=== PATIENT | female | born 1950 | race African-American/Black ===

== ENCOUNTER 2016-12-01 01:28 | Emergency (ER) | payer MEDICARE, OTHER ==
[~2016-12-01] VITALS: Ht 182.9 cm; Wt 75.0 kg
[~2016-12-01 01:28] MED LIST: AMLO5 PO; ASPI81 PO; ATEN25 PO; CLOP75 PO; DOXA1 PO; HYDR-2768 PO; PRAV10 PO
[2016-12-01 01:33] VITALS: BP 191/84; PULSE 98; RESP 16; TEMP 98.1; O2SAT 100
[2016-12-01] MEDS ORDERED: ATOR1TAB18 PO (03:10)
[2016-12-01] MEDS ORDERED: DOXA1TAB34 PO (03:10)
[2016-12-01] MEDS ORDERED: PANT40TA3 PO (03:10)
[2016-12-01] MEDS ORDERED: CLOP75TA PO (03:10)
[2016-12-01] MEDS ORDERED: AMLO5TAB2 PO (03:10)
[2016-12-01] MEDS ORDERED: SODIUM CHLOR 0.9% 1000 ML INJ 1,000 ML IV ONE (03:16)
[2016-12-01] MEDS ORDERED: SODIUM CHLORIDE 0.9% FLUSH 5 ML FLUSH IVF PRN (03:30)
[2016-12-01] MEDS ORDERED: PROCHLORPERAZINE INJ 10 MG/2 ML VIAL IVP ONE (03:30)
[2016-12-01] MEDS ORDERED: diphenhydrAMINE HCL 50 MG/ML VIAL IVP ONE (03:30)
[2016-12-01 03:42] LABS: AUTOMATED NEUTROPHIL # 3.1 TH/MM3 (1.8-7.7); BASOPHIL # 0.1 TH/MM3 (0-0.2); BASOPHIL % 0.9 % (0.0-2.0); EOSINOPHIL % 0.6 % (0.0-4.0); HEMATOCRIT 32.1 % (35.0-46.0); HEMO FLAGS DIFF FINAL; LYMPH % 35.6 % (9.0-44.0); LYMPHOCYTE # 2.2 TH/MM3 (1.0-4.8); MEAN CELL VOLUME 87.7 FL (80.0-100.0); MEAN CORPUSCULAR HEMOGLOBIN 30.2 PG (27.0-34.0); MEAN CORPUSCULAR HGB CONC 34.5 % (32.0-36.0); MONO % 13.8 % (0.0-8.0); NEUT % 49.1 % (16.0-70.0); PLATELET COUNT 401 TH/MM3 (150-450); RED BLOOD COUNT 3.66 MIL/MM3 (4.00-5.30); RED CELL DISTRIBUTION WIDTH 16.1 % (11.6-17.2); WHITE BLOOD COUNT 6.3 TH/MM3 (4.0-11.0)
[2016-12-01 03:55] VITALS: PULSE 75; RESP 18; O2SAT 100
--- NOTE | 2016-12-01 04:04 | RADRPT ---
EXAM DATE/TIME: 12/01/2016 03:41 [facility] COMPARISON: CT BRAIN W/O CONTRAST, May 14, 2013, 3:24. INDICATIONS : Headache. RADIATION DOSE: 56.35 CTDIvol (mGy) MEDICAL HISTORY : Myocardial infarction. Hypercholesterolemia. Hypertension.Cardiac stent SURGICAL HISTORY : Tubal ligation. ectopic ENCOUNTER: Initial ACUITY: 1 day PAIN SCALE: 9/10 LOCATION: cranial TECHNIQUE: Multiple contiguous axial images were obtained of the head. Using automated exposure control and adj ustment of the mA and/or kV according to patient size, radiation dose was kept as low as reasonably a chievable to obtain optimal diagnostic quality images. FINDINGS: There are tiny bilateral basal ganglia lacunar infarcts which appear stable and remote. Minimal basal ganglia calcification present. There is no evidence of intracranial hemorrhage or mass. There is not rupal to suggest acute infarction. Extracranial structures are benign and intact. CONCLUSION: No acute intracranial findings Logan Norwood MD on December 01, 2016 at 4:01 Board Certified Radiologist. This report was verified electronically.
[2016-12-01 04:10] LABS: ANION GAP 11 MEQ/L (5-15); BICARBONATE 23.1 MEQ/L (21.0-32.0); BLOOD UREA NITROGEN 9 MG/DL (7-18); CHLORIDE 94 MEQ/L (98-107); GLOMERULAR FILTRATION RATE 80 ML/MIN (>89); POTASSIUM 3.6 MEQ/L (3.5-5.1); SODIUM (NA) 128 MEQ/L (136-145)
--- NOTE | 2016-12-01 04:48 | PD ---
HPI Chief Complaint: Hypertension Time Seen by Provider: 03:16 Travel History International Travel<30 days: No Contact w/Intl Traveler<30days: No Traveled to known affect area: No History of Present Illness HPI Patient 66-year-old female presents emergency department for evaluation of headache and high blood pressure. Patient states she's been having headache for her proximally and day and a half. States headache is bifrontal. States she's had headaches like this before. Denies any thunderclap presentation denies any nuchal rigidity fevers visual changes or localized weakness. Patient took her blood pressure noted it was elevated. She's been taking her blood pressure medicine as prescribed. PFSH Past Medical History Hx Anticoagulant Therapy: Yes (PLAVIX) Arthritis: No Asthma: No Blood Disorders: No Anxiety: No Depression: No Heart Rhythm Problems: No Cancer: No Cardiac Catheterization: Yes Cardiovascular Problems: Yes (HTN, PR STENT) High Cholesterol: Yes Chemotherapy: No Chest Pain: No Congestive Heart Failure: No COPD: No Cerebrovascular Accident: No Diabetes: No Diminished Hearing: No Endocrine: No GERD: No Headaches: Yes Hiatal Hernia: No Hypertension: Yes Implanted Vascular Access Dvce: No Kidney Stones: No Immunizations Current: Yes Migraines: No Myocardial Infarction: No Renal Failure: No Seizures: Yes (PT DENIES) Sickle Cell Disease: No Sleep Apnea: No Thyroid Disease: No Ulcer: Yes Influenza Vaccination: Yes Menopausal: Yes : 2 Para: 2 Ectopic : Yes Tubal Ligation: Yes Past Surgical History Abdominal Surgery: No AICD: No Arteriovenous Shunt: No Cardiac Surgery: No Ear Surgery: No Endocrine Surgery: No Eye Surgery: No Genitourinary Surgery: No Gynecologic Surgery: No Insulin Pump: No Joint Replacement: No Neurologic Surgery: No Oral Surgery: No Pacemaker: No Thoracic Surgery: No Other Surgery: Yes Social History Alcohol Use: Yes (daily) Tobacco Use: Yes (1PPD) Substance Use: No Allergies-Medications (Allergen,Severity, Reaction): Coded Allergies: Advil (Verified Allergy, Severe, 12/01/16) Lisinopril (Verified Allergy, Severe, LIP SWELLS, 12/01/16) Reported Meds & Prescriptions Reported Meds & Active Scripts Active Reported Pantoprazole (Pantoprazole Sodium) 40 Mg Tab 40 Mg PO DAILY Amlodipine (Amlodipine Besylate) 5 Mg Tab 5 Mg PO DAILY Atorvastatin (Atorvastatin Calcium) 80 Mg Tab 80 Mg PO HS Clopidogrel (Clopidogrel Bisulfate) 75 Mg Tab 75 Mg PO DAILY Doxazosin (Doxazosin Mesylate) 4 Mg Tab 4 Mg PO BID Review of Systems Except as stated in HPI: all other systems reviewed are Neg Physical Exam Narrative GENERAL: Well-developed well-nourished no apparent distress SKIN: Warm and dry. HEAD: Atraumatic. Normocephalic. EYES: Pupils equal and round. No scleral icterus. No injection or drainage. ENT: No nasal bleeding or discharge. Mucous membranes pink and moist. NECK: Trachea midline. No JVD. No nuchal rigidity CARDIOVASCULAR: Regular rate and rhythm. No murmur appreciated. RESPIRATORY: No accessory muscle use. Clear to auscultation. Breath sounds equal bilaterally. GASTROINTESTINAL: Abdomen soft, non-tender, nondistended. Hepatic and splenic margins not palpable. MUSCULOSKELETAL: No obvious deformities. No clubbing. No cyanosis. No edema. NEUROLOGICAL: Awake and alert oriented 3, cranial nerves II through XII grossly intact and nonfocal, 5 out of 5 strength in all 4 extremities. Ambulates even narrow based gait. PSYCHIATRIC: Appropriate mood and affect; insight and judgment normal. Data Data Last Documented VS Vital Signs Date Time Temp Pulse Resp B/P Pulse Ox O2 Delivery O2 Flow Rate FiO2 12/01/16 05:00 79 18 170/70 100 Room Air 12/01/16 03:55 2 12/01/16 01:33 98.1 Orders Complete Blood Count With Diff (12/01/16 03:16) Basic Metabolic Panel (Bmp) (12/01/16 03:16) W[place]gren Sedimentation Rate (12/01/16 03:16) C-Reactive Protein (Crp) (12/01/16 03:16) Ct Brain W/O Iv Contrast(Rout) (12/01/16 03:16) Ecg Monitoring (12/01/16 03:16) Iv Access Insert/Monitor (12/01/16 03:16) Oximetry (12/01/16 03:16) Sodium Chloride 0.9% Flush (Ns Flush) (12/01/16 03:30) Prochlorperazine Inj (Compazine Inj) (12/01/16 03:30) Diphenhydramine Inj (Benadryl Inj) (12/01/16 03:30) Sodium Chlor 0.9% 1000 Ml Inj (Ns 1000 M (12/01/16 03:16) Labs Laboratory Tests Test 12/01/16 03:30 White Blood Count 6.3 TH/MM3 Red Blood Count 3.66 MIL/MM3 Hemoglobin 11.1 GM/DL Hematocrit 32.1 % Mean Corpuscular Volume 87.7 FL Mean Corpuscular Hemoglobin 30.2 PG Mean Corpuscular Hemoglobin 34.5 % Concent Red Cell Distribution Width 16.1 % Platelet Count 401 TH/MM3 Mean Platelet Volume 7.1 FL Neutrophils (%) (Auto) 49.1 % Lymphocytes (%) (Auto) 35.6 % Monocytes (%) (Auto) 13.8 % Eosinophils (%) (Auto) 0.6 % Basophils (%) (Auto) 0.9 % Neutrophils # (Auto) 3.1 TH/MM3 Lymphocytes # (Auto) 2.2 TH/MM3 Monocytes # (Auto) 0.9 TH/MM3 Eosinophils # (Auto) 0.0 TH/MM3 Basophils # (Auto) 0.1 TH/MM3 CBC Comment DIFF FINAL Differential Comment Erythrocyte Sedimentation Rate 23 mm/hr Sodium Level 128 MEQ/L Potassium Level 3.6 MEQ/L Chloride Level 94 MEQ/L Carbon Dioxide Level 23.1 MEQ/L Anion Gap 11 MEQ/L Blood Urea Nitrogen 9 MG/DL Creatinine 0.86 MG/DL Estimat Glomerular Filtration 80 ML/MIN Rate Random Glucose 119 MG/DL Calcium Level 8.5 MG/DL C-Reactive Protein LESS THAN 0.29 MG/DL MDM Medical Decision Making Medical Screen Exam Complete: Yes Emergency Medical Condition: Yes Differential Diagnosis Headache, hypertensive emergency unlikely, CHF unlikely, acute renal failure likely, subarachnoid hemorrhage unlikely, meningitis extremely unlikely. Narrative Course Patient roomed in emergency department, she was given Benadryl and Compazine. She had complete relief her headache with this. Discussed with her that she is out of the window for CT did adequately rule out subarachnoid hemorrhage and discussed risks benefits competitions and alternatives for lumbar puncture. At this time she would like to defer. Discussed with her symptomatically management home and return to ED criteria. She did have CT head in emerged her negative. Basic labs are reassuring. Diagnosis Primary Impression: Headache Qualified Code: R51 - Nonintractable headache, unspecified chronicity pattern , unspecified headache type Additional Instructions: Follow be a primary care provider for further management of your blood pressure. Disposition: 01 DISCHARGE HOME Condition: Stable Tres Pablo MD Dec 01, 2016 04:48
[2016-12-01 05:00] VITALS: BP 170/70; PULSE 79; RESP 18; O2SAT 100
== END 2016-12-01 05:14 | disposition home or self-care (01) ==
LOC: NEPE 01:28
DX: R51 Headache (principal); I10 Essential (primary) hypertension; F17.210 Nicotine dependence, cigarettes, uncomplicated
CPT/HCPCS: 70450; 80048; 85025; 85652; 86140; 96361; 96374; 96375; 99284; J0780; J1200; J7030

== ENCOUNTER 2017-12-22 02:24 | Observation (INO) | payer MEDICARE, OTHER ==
[2017-12-22] VITALS (10 sets, daily range): BP systolic 139–210; BP diastolic 70–92; PULSE 59–93; RESP 16–20; TEMP 96.4–99.2; O2SAT 94–97
[~2017-12-22] VITALS: Ht 182.9 cm; Wt 90.0 kg
[~2017-12-22 02:24] MED LIST changes: -AMLO5 PO; +AMLO5TAB2 PO; -ASPI81 PO; -ATEN25 PO; +ATOR80TA45 PO; -CLOP75 PO; +CLOP75TA PO; -DOXA1 PO; +DOXA1TAB34 PO; -HYDR-2768 PO; +PANT40TA3 PO; -PRAV10 PO
[2017-12-22] MEDS ORDERED: SODIUM CHLORIDE 0.9% FLUSH 10 ML FLUSH IV FLUSH PRN ×2 (03:00→06:30)
--- NOTE | 2017-12-22 03:03 | RADRPT ---
EXAM DATE/TIME: 12/22/2017 02:49 [facility] COMPARISON: CHEST SINGLE AP, February 29, 2016, 5:44. INDICATIONS : Syncope. MEDICAL HISTORY : Myocardial infarction. Hypercholesterolemia. Hypertension. SURGICAL HISTORY : Tubal ligation. Cardiac stent ENCOUNTER: Initial ACUITY: 1 day PAIN SCORE: 0/10 LOCATION: Bilateral chest FINDINGS: A single view of the chest demonstrates the lungs to be symmetrically aerated without evidence of mas s, infiltrate or effusion. The cardiomediastinal contours are unremarkable. Osseous structures are intact. CONCLUSION: No acute disease. Willam Zurita MD on December 22, 2017 at 3:00 Board Certified Radiologist. This report was verified electronically.
--- NOTE | 2017-12-22 03:18 | PD ---
HPI Chief Complaint: Neuro Symptoms/ Deficits Time Seen by Provider: 02:46 Travel History International Travel<30 days: No Contact w/Intl Traveler<30days: No Traveled to known affect area: No History of Present Illness HPI 67-year-old female presents to the emergency department by EMS transport from home for evaluation of possible new onset seizure disorder since 10 PM Saturday evening. No prior history of seizure disorder or TIA or CVA. Patient was reportedly witnessed by who is not at bedside but reported by EMS that the patient became stiff and rigid and appeared to have seizure-like activity around 10 PM. Symptoms resolved and patient was briefly confused. Patient did well until approximately midnight and had another similar episode of longer duration. Patient finally presented as just prior to arrival to the emergency department patient had another episode similar to the episode at 10 PM and midnight and seemed to take longer for her to become oriented. Upon EMS arrival patient appeared postictal to them. Upon arrival to the emergency department paramedics reported mentation has continued to progressively improve. Here patient knows that she is here at the hospital in [facility] [place] but is not sure what has happened and denies any head pain neck pain back pain chest pain abdominal pain shortness of breath nausea vomiting diarrhea injury or fever. PFSH Past Medical History Narrative Medical Hypertension dyslipidemia; no tobacco use; nursing notes reviewed Hx Anticoagulant Therapy: Yes (PLAVIX) Arthritis: No Asthma: No Blood Disorders: No Anxiety: No Depression: No Heart Rhythm Problems: No Cancer: No Cardiac Catheterization: Yes Cardiovascular Problems: Yes (HTN, NE STENT) High Cholesterol: Yes Chemotherapy: No Chest Pain: No Congestive Heart Failure: No COPD: No Cerebrovascular Accident: No Diabetes: No Diminished Hearing: No Endocrine: No GERD: No Headaches: Yes Hiatal Hernia: No Hypertension: Yes Implanted Vascular Access Dvce: No Kidney Stones: No Immunizations Current: Yes Migraines: No Myocardial Infarction: No Renal Failure: No Seizures: Yes (PT DENIES) Sickle Cell Disease: No Sleep Apnea: No Thyroid Disease: No Ulcer: Yes Influenza Vaccination: Yes Menopausal: Yes : 2 Para: 2 Ectopic : Yes Tubal Ligation: Yes Past Surgical History Abdominal Surgery: No AICD: No Arteriovenous Shunt: No Cardiac Surgery: No Ear Surgery: No Endocrine Surgery: No Eye Surgery: No Genitourinary Surgery: No Gynecologic Surgery: No Insulin Pump: No Joint Replacement: No Neurologic Surgery: No Oral Surgery: No Pacemaker: No Thoracic Surgery: No Other Surgery: Yes Social History Alcohol Use: Yes (daily) Tobacco Use: Yes (1PPD) Substance Use: No Allergies-Medications (Allergen,Severity, Reaction): Coded Allergies: ibuprofen (Unverified Allergy, Severe, 05/14/17) lisinopril (Unverified Allergy, Severe, LIP SWELLS, 05/14/17) Reported Meds & Prescriptions Reported Meds & Active Scripts Active Reported Pantoprazole (Pantoprazole Sodium) 40 Mg Tab 40 Mg PO DAILY Amlodipine (Amlodipine Besylate) 5 Mg Tab 5 Mg PO DAILY Atorvastatin (Atorvastatin Calcium) 80 Mg Tab 80 Mg PO HS Clopidogrel (Clopidogrel Bisulfate) 75 Mg Tab 75 Mg PO DAILY Doxazosin (Doxazosin Mesylate) 4 Mg Tab 4 Mg PO BID Review of Systems Except as stated in HPI: all other systems reviewed are Neg Physical Exam Narrative GENERAL: Well-developed well-nourished female no acute distress no respiratory distress GCS 15 SKIN: Warm and dry. HEAD: Atraumatic. Normocephalic. EYES: Pupils equal and round. No scleral icterus. No injection or drainage. ENT: No nasal bleeding or discharge. Mucous membranes pink and moist. NECK: Trachea midline. No JVD. CARDIOVASCULAR: Regular rate and rhythm. RESPIRATORY: No accessory muscle use. Clear to auscultation. Breath sounds equal bilaterally. GASTROINTESTINAL: Abdomen soft, non-tender, nondistended. Hepatic and splenic margins not palpable. MUSCULOSKELETAL: Extremities without clubbing, cyanosis, or edema. No obvious deformities. NEUROLOGICAL: Awake and alert. No obvious cranial nerve deficits. Motor grossly within normal limits. Five out of 5 muscle strength in the arms and legs. No limb ataxia no pronator drift sensory exam intact DTRs 2+ and equal normal speech. PSYCHIATRIC: Appropriate mood and affect; insight and judgment normal. Data Data Last Documented VS Vital Signs Date Time Temp Pulse Resp B/P (MAP) Pulse Ox O2 Delivery O2 Flow Rate FiO2 12/22/17 05:49 76 16 210/91 (130) 96 12/22/17 02:50 Room Air 12/22/17 02:47 98.9 Orders Orders Electrocardiogram (12/22/17 02:46) Ammonia (12/22/17 02:46) Complete Blood Count With Diff (12/22/17 02:46) Comprehensive Metabolic Panel (12/22/17 02:46) Creatine Kinase (Cpk) (12/22/17 02:46) Prothrombin Time / Inr (Pt) (12/22/17 02:46) Act Partial Throm Time (Ptt) (12/22/17 02:46) Troponin I (12/22/17 02:46) Thyroid Stimulating Hormone (12/22/17 02:46) Urinalysis - C+S If Indicated (12/22/17 02:46) Lactic Acid Sepsis Protocol (12/22/17 02:46) Chest, Single Ap (12/22/17 02:46) Ct Brain W/O Iv Contrast(Rout) (12/22/17 02:46) Blood Glucose (12/22/17 02:46) Ecg Monitoring (12/22/17 02:46) Iv Access Insert/Monitor (12/22/17 02:46) Oximetry (12/22/17 02:46) Sodium Chloride 0.9% Flush (Ns Flush) (12/22/17 03:00) Drug Screen, Random Urine (12/22/17 02:46) Alcohol (Ethanol) (12/22/17 02:46) Blood Glucose (12/22/17 02:46) Labetalol Inj (Trandate Inj) (12/22/17 06:00) Admit Order (Ed Use Only) (12/22/17 ) Grounds Cleaner / Telemetry GUERLINE.Q8H (12/22/17 05:59) Activity Bed Rest (12/22/17 05:59) Notify Dr: Other (12/22/17 05:59) Labs Laboratory Tests Test 12/22/17 02:57 12/22/17 05:15 White Blood Count 7.9 TH/MM3 Red Blood Count 3.94 MIL/MM3 Hemoglobin 11.7 GM/DL Hematocrit 34.8 % Mean Corpuscular Volume 88.3 FL Mean Corpuscular Hemoglobin 29.6 PG Mean Corpuscular Hemoglobin Concent 33.6 % Red Cell Distribution Width 15.6 % Platelet Count 389 TH/MM3 Mean Platelet Volume 7.1 FL Neutrophils (%) (Auto) 35.8 % Lymphocytes (%) (Auto) 48.5 % Monocytes (%) (Auto) 12.7 % Eosinophils (%) (Auto) 2.7 % Basophils (%) (Auto) 0.3 % Neutrophils # (Auto) 2.8 TH/MM3 Lymphocytes # (Auto) 3.8 TH/MM3 Monocytes # (Auto) 1.0 TH/MM3 Eosinophils # (Auto) 0.2 TH/MM3 Basophils # (Auto) 0.0 TH/MM3 CBC Comment DIFF FINAL Differential Comment Prothrombin Time 10.2 SEC Prothromb Time International Ratio 1.0 RATIO Activated Partial Thromboplast Time 22.3 SEC Blood Urea Nitrogen 11 MG/DL Creatinine 1.10 MG/DL Random Glucose 112 MG/DL Total Protein 7.7 GM/DL Albumin 3.5 GM/DL Calcium Level 8.6 MG/DL Alkaline Phosphatase 77 U/L Aspartate Amino Transf (AST/SGOT) 19 U/L Alanine Aminotransferase (ALT/SGPT) 19 U/L Total Bilirubin 0.3 MG/DL Sodium Level 136 MEQ/L Potassium Level 3.6 MEQ/L Chloride Level 98 MEQ/L Carbon Dioxide Level 23.5 MEQ/L Anion Gap 15 MEQ/L Estimat Glomerular Filtration Rate 60 ML/MIN Lactic Acid Level 3.1 mmol/L Ammonia 25 MCMOL/L Total Creatine Kinase 162 U/L Troponin I 0.03 NG/ML Thyroid Stimulating Hormone 3rd Gen 1.770 uIU/ML Ethyl Alcohol Level LESS THAN 3 MG/DL Urine Color LIGHT-YELLOW Urine Turbidity CLEAR Urine pH 6.0 Urine Specific Stem 1.008 Urine Protein NEG mg/dL Urine Glucose (UA) NEG mg/dL Urine Ketones NEG mg/dL Urine Occult Blood NEG Urine Nitrite NEG Urine Bilirubin NEG Urine Urobilinogen LESS THAN 2.0 MG/DL Urine Leukocyte Esterase NEG Urine RBC 1 /hpf Urine WBC 1 /hpf Urine Squamous Epithelial Cells <1 /hpf Urine Mucus FEW /lpf Microscopic Urinalysis Comment CATH-CULT NOT IND MDM Medical Decision Making Medical Screen Exam Complete: Yes Emergency Medical Condition: Yes Medical Record Reviewed: Yes Interpretation(s) EKG normal sinus rhythm with rare PAC no acute ST elevation CT brain: Per reading radiologist stable small lacunar infarcts in no acute process per reading radiologist Dr. Peña Chest x-ray: No acute process per reading radiologist Differential Diagnosis Seizure, altered mental status, CVA, TIA, arrhythmia, electrolytic disturbance, metabolic encephalopathy, conversion reaction, ICH Narrative Course Patient placed on cardiac rehabilitation program director with continuous pulse oximetry IV access obtain CT brain noncontrast ordered along with basic labs EKG is sinus rhythm rate of 90 with occasional PAC Daughter at bedside and clarifies only one seizure form event witnessed by the father unknown duration last seen normal at 10 PM Physician Communication Physician Communication discussed with Dr Chino--admit Diagnosis Primary Impression: Syncope Additional Impressions: Altered mental status, unspecified Essential hypertension Admitting Information Admitting Physician Requests: Admit Suzette Hill MD Dec 22, 2017 03:18
[2017-12-22 03:36] LABS: PROTHROMBIN TIME - PATIENT 10.2 SEC (9.8-11.6)
[2017-12-22 03:43] LABS: ALBUMIN 3.5 GM/DL (3.4-5.0); ALT (GPT) 19 U/L (10-53); AST (GOT) 19 U/L (15-37); BICARBONATE 23.5 MEQ/L (21.0-32.0); BLOOD UREA NITROGEN 11 MG/DL (7-18); CALCIUM 8.6 MG/DL (8.5-10.1); CHLORIDE 98 MEQ/L (98-107); GLOMERULAR FILTRATION RATE 60 ML/MIN (>89); GLUCOSE,RANDOM 112 MG/DL (74-106); SODIUM (NA) 136 MEQ/L (136-145)
[2017-12-22 03:47] LABS: LACTIC ACID SEPSIS PROTOCOL 3.1 mmol/L (0.4-2.0)
[2017-12-22 03:52] LABS: ALKALINE PHOSPHATASE 77 U/L (45-117); TOTAL BILIRUBIN ADULT 0.3 MG/DL (0.2-1.0); TOTAL PROTEIN 7.7 GM/DL (6.4-8.2); TROPONIN I 0.03 NG/ML (0.02-0.05)
--- NOTE | 2017-12-22 03:59 | RADRPT ---
EXAM DATE/TIME: 12/22/2017 03:40 [facility] COMPARISON: CT BRAIN W/O CONTRAST, December 01, 2016, 3:41. INDICATIONS : Altered mental status; possible seizure. RADIATION DOSE: 34.78 CTDIvol (mGy) MEDICAL HISTORY : Cardiovascular disease. Hypertension. SURGICAL HISTORY : Coronary artery stent. Tubal ligation. ENCOUNTER: Initial ACUITY: 1 day PAIN SCALE: 0/10 LOCATION: cranial TECHNIQUE: Multiple contiguous axial images were obtained of the head. Using automated exposure control and adj ustment of the mA and/or kV according to patient size, radiation dose was kept as low as reasonably a chievable to obtain optimal diagnostic quality images. DICOM format image data is available electro nically for review and comparison. FINDINGS: CEREBRUM: The ventricles are normal for age. No evidence of midline shift, mass lesion, hemorrhage or acute in farction. Tiny stable lacunar infarcts are again noted in the basal ganglia. No extra-axial fluid col lections are seen. POSTERIOR FOSSA: The cerebellum and brainstem are intact. The 4th ventricle is midline. The cerebellopontine angle i s unremarkable. EXTRACRANIAL: The visualized portion of the orbits is intact. SKULL: The calvaria is intact. No evidence of skull fracture. CONCLUSION: Stable negative noncontrast head CT . Tiny stable lacunar infarcts are again noted in the basal ganglia. Willam Zurita MD on December 22, 2017 at 3:56 Board Certified Radiologist. This report was verified electronically.
[2017-12-22 04:16] LABS: AUTOMATED NEUTROPHIL # 2.8 TH/MM3 (1.8-7.7); BASOPHIL % 0.3 % (0.0-2.0); EOSINOPHIL # 0.2 TH/MM3 (0-0.4); EOSINOPHIL % 2.7 % (0.0-4.0); HEMATOCRIT 34.8 % (35.0-46.0); HEMOGLOBIN 11.7 GM/DL (11.6-15.3); LYMPH % 48.5 % (9.0-44.0); LYMPHOCYTE # 3.8 TH/MM3 (1.0-4.8); MEAN CELL VOLUME 88.3 FL (80.0-100.0); MEAN CORPUSCULAR HEMOGLOBIN 29.6 PG (27.0-34.0); MEAN CORPUSCULAR HGB CONC 33.6 % (32.0-36.0); MEAN PLATELET VOLUME 7.1 FL (7.0-11.0); MONO % 12.7 % (0.0-8.0); NEUT % 35.8 % (16.0-70.0); PLATELET COUNT 389 TH/MM3 (150-450); RED BLOOD COUNT 3.94 MIL/MM3 (4.00-5.30); RED CELL DISTRIBUTION WIDTH 15.6 % (11.6-17.2); WHITE BLOOD COUNT 7.9 TH/MM3 (4.0-11.0)
[2017-12-22 05:55] LABS: BILIRUBIN, URINE NEG (NEG); BLOOD, URINE NEG (NEG); GLUCOSE,URINE NEG (NEG); KETONE, URINE NEG (NEG); MUCUS URINE FEW /lpf (OCC); NITRITE,URINE NEG (NEG); SQUAMOUS EPITHELIAL CELL URINE <1 /hpf (0-5); URINE COLOR LIGHT-YELLOW (YELLW/STRAW); URINE LEUKOCYTE ESTERASE NEG (NEG)
[2017-12-22] MEDS ORDERED: LABETALOL HCL 100 MG/20 ML VIAL IV PUSH ONE (06:00)
[2017-12-22] MEDS ORDERED: LABE200T2 PO (06:16)
[2017-12-22] MEDS ORDERED: ONDANSETRON HCL 4 MG/2 ML VIAL IVP PRN (06:30)
[2017-12-22] MEDS ORDERED: ACETAMINOPHEN/HYDROcodone 325 MG/5 MG TAB PO PRN (06:30)
[2017-12-22] MEDS ORDERED: LORazepam 2 MG/ML VIAL IV PUSH PRN ×5 (06:30→11:30)
[2017-12-22] MEDS ORDERED: MAGNESIUM HYDROXIDE SUSP 30 ML CUP PO PRN (06:30)
[2017-12-22] MEDS ORDERED: SENNOSIDES 8.6 MG TAB PO PRN (06:30)
[2017-12-22] MEDS ORDERED: ACETAMINOPHEN 325 MG TAB PO PRN (06:30)
[2017-12-22] MEDS ORDERED: LACTULOSE SYRUP 20 GM/30 ML CUP PO PRN (06:30)
[2017-12-22] MEDS ORDERED: ACETAMINOPHEN/HYDROcodone 325 MG/10 MG TAB PO PRN (06:30)
[2017-12-22] MEDS ORDERED: BISACODYL 10 MG SUPP RECTAL PRN (06:30)
--- NOTE | 2017-12-22 08:16 | HHI.HP ---
[facility] Service [facility] Primary Care Physician Timothy Chino MD Admission Diagnosis syncope/possible new onset seizure; HTN Diagnoses: Chief Complaint: seizure/syncope Travel History International Travel<30 Days: No Contact w/Intl Traveler <30 Da: No Traveled to Known Affected Are: No History of Present Illness Written by Ofe Young, acting as scribe for Dr. Lara on 12/22/17 at 08:15. 67-year-old female with history of HTN, HLD, CAD s/p stent, perforated gastric ulcer, prior tobacco use, alcohol use, presents with reported seizure activity and loss of consciousness. Patient reports she has felt in her usual state of health recently, was walking around her house last night, and the next thing she recalls is waking up in the hospital. ER reported patient's witnessed the patient become stiff, rigid, with seizure-like activity around 10 PM last night with subsequent confusion. She returned her baseline shortly after the episode, however around midnight she had a repeat similar episode with prolonged confusion. [facility] was called, and EMS reported the patient appeared postictal. Upon arrival to the ER, her mentation improved. The patient reports urinary incontinence. Denies any tongue biting. She was transported via [facility]. Denies any headache, lightheadedness, dizziness , chest pain, palpitations, shortness of breath, abdominal pain, nausea/vomiting , diarrhea, or urinary complaints. The patient reports a similar episode 3 years ago (however EMR reports episode in 2012), where she had an unremarkable work up. Neurology reported likely seizure related to alcohol use and hyponatremia. EEG was normal at that time. She does continue to drink alcohol, approximately 2 beers daily. She quit smoking 2 years ago. Denies any other medical complaints at this time. It should be noted the patient is not the best historian and information supplemented from EMR. Review of Systems Except as stated in HPI: all other systems reviewed are Neg Past Family Social History Past Medical History HTN HLD NC CAD s/p stent of distal left circumflex artery perforated gastric ulcer Past Surgical History 11/02/15 - Exploratory laparotomy with open repair of perforated peptic ulcer 02/23/16 - Cardiac catheterization-CAD with severe stenosis of distal left circumflex artery s/p angioplasty and stenting Reported Medications Labetalol (Labetalol HCl) 200 Mg Tab 200 Mg PO BID Pantoprazole (Pantoprazole Sodium) 40 Mg Tab 40 Mg PO DAILY Amlodipine (Amlodipine Besylate) 5 Mg Tab 5 Mg PO DAILY Clopidogrel (Clopidogrel Bisulfate) 75 Mg Tab 75 Mg PO DAILY Allergies: Coded Allergies: ibuprofen (Unverified Allergy, Severe, 05/14/17) lisinopril (Unverified Allergy, Severe, LIP SWELLS, 05/14/17) Active Ordered Medications Current Medications Medications (Trade) Dose Ordered Sig/Cassy Route Start Time Stop Time Status Last Admin (Ativan Inj) 1 mg Q5M PRN IV PUSH 12/22/17 06:30 Sodium Chloride 1,000 ml @ 100 mls/hr Q10H IV 12/22/17 06:16 (NS Flush) 2 ml UNSCH PRN IV FLUSH 12/22/17 06:30 (NS Flush) 2 ml BID IV FLUSH 12/22/17 09:00 (Zofran Inj) 4 mg Q6H PRN IVP 12/22/17 06:30 (Tylenol) 650 mg Q6H PRN PO 12/22/17 06:30 ([place] 5-325 Mg) 1 tab Q4H PRN PO 12/22/17 06:30 ([place] 10-325 Mg) 1 tab Q4H PRN PO 12/22/17 06:30 (Connie-Colace) 1 tab BID PO 12/22/17 09:00 (Milk Of Magnesia Liq) 30 ml Q12H PRN PO 12/22/17 06:30 (Senokot) 17.2 mg Q12H PRN PO 12/22/17 06:30 (Dulcolax Supp) 10 mg DAILY PRN RECTAL 12/22/17 06:30 (Lactulose Liq) 30 ml DAILY PRN PO 12/22/17 06:30 (Norvasc) 5 mg DAILY PO 12/22/17 09:00 (Plavix) 75 mg DAILY PO 12/22/17 09:00 (Trandate) 200 mg BID PO 12/22/17 09:00 (Protonix) 40 mg DAILY PO 12/22/17 09:00 Family History Family history positive for hypertension; otherwise denies any significant history of heart disease, stroke, cancer, or diabetes Social History Smoked tobacco 1PPD, quit 2 years ago Drinks alcohol - 2 beers occasionally Denies any illicit drug use Physical Exam Vital Signs Vital Signs Date Time Temp Pulse Resp B/P (MAP) Pulse Ox O2 Delivery O2 Flow Rate FiO2 12/22/17 07:08 12/22/17 06:00 139/71 (93) 12/22/17 05:49 76 16 210/91 (130) 96 12/22/17 02:50 16 95 Room Air 12/22/17 02:47 98.9 93 16 183/79 (113) 95 Physical Exam GENERAL: Well-nourished, well-developed female patient in NAD. SKIN: Warm and dry. No rash. HEAD: Normocephalic. Atraumatic. EYES: Pupils equal and round. No scleral icterus. No injection or drainage. ENT: No nasal bleeding or discharge. Mucous membranes pink and moist. Tonsils slightly enlarged but no erythema. NECK: Supple. Trachea midline. CARDIOVASCULAR: Regular rate and rhythm. 2/6 systolic murmur noted. RESPIRATORY: No accessory muscle use. Clear to auscultation. Breath sounds equal bilaterally. GASTROINTESTINAL: Abdomen soft, non-tender, nondistended. Normoactive bowel sounds x4. MUSCULOSKELETAL: No obvious deformities. Extremities without clubbing, cyanosis , or edema. NEUROLOGICAL: Awake and alert. No obvious cranial nerve deficits. Motor grossly within normal limits. 5/5 muscle strength in bilateral upper and lower extremities. Normal speech. PSYCHIATRIC: Appropriate mood and affect; insight and judgment normal. Laboratory Laboratory Tests Test 12/22/17 02:57 12/22/17 05:15 White Blood Count 7.9 Red Blood Count 3.94 Hemoglobin 11.7 Hematocrit 34.8 Mean Corpuscular Volume 88.3 Mean Corpuscular Hemoglobin 29.6 Mean Corpuscular Hemoglobin Concent 33.6 Red Cell Distribution Width 15.6 Platelet Count 389 Mean Platelet Volume 7.1 Neutrophils (%) (Auto) 35.8 Lymphocytes (%) (Auto) 48.5 Monocytes (%) (Auto) 12.7 Eosinophils (%) (Auto) 2.7 Basophils (%) (Auto) 0.3 Neutrophils # (Auto) 2.8 Lymphocytes # (Auto) 3.8 Monocytes # (Auto) 1.0 Eosinophils # (Auto) 0.2 Basophils # (Auto) 0.0 CBC Comment DIFF FINAL Differential Comment Prothrombin Time 10.2 Prothromb Time International Ratio 1.0 Activated Partial Thromboplast Time 22.3 Blood Urea Nitrogen 11 Creatinine 1.10 Random Glucose 112 Total Protein 7.7 Albumin 3.5 Calcium Level 8.6 Alkaline Phosphatase 77 Aspartate Amino Transf (AST/SGOT) 19 Alanine Aminotransferase (ALT/SGPT) 19 Total Bilirubin 0.3 Sodium Level 136 Potassium Level 3.6 Chloride Level 98 Carbon Dioxide Level 23.5 Anion Gap 15 Estimat Glomerular Filtration Rate 60 Lactic Acid Level 3.1 Ammonia 25 Total Creatine Kinase 162 Troponin I 0.03 Thyroid Stimulating Hormone 3rd Gen 1.770 Ethyl Alcohol Level LESS THAN 3 Urine Color LIGHT-YELLOW Urine Turbidity CLEAR Urine pH 6.0 Urine Specific [place] 1.008 Urine Protein NEG Urine Glucose (UA) NEG Urine Ketones NEG Urine Occult Blood NEG Urine Nitrite NEG Urine Bilirubin NEG Urine Urobilinogen LESS THAN 2.0 Urine Leukocyte Esterase NEG Urine RBC 1 Urine WBC 1 Urine Squamous Epithelial Cells <1 Urine Mucus FEW Microscopic Urinalysis Comment CATH-CULT NOT IND Urine Opiates Screen NEG Urine Barbiturates Screen NEG Urine Amphetamines Screen NEG Urine Benzodiazepines Screen NEG Urine Cocaine Screen NEG Urine Cannabinoids Screen NEG Result Diagram: 12/22/1725612/22/17256 Caprini VTE Risk Assessment Caprini VTE Risk Assessment: Mod/High Risk (score >= 2) Caprini Risk Assessment Model Point Value = 1 Point Value = 2 Point Value = 3 Point Value = 5 Age 41-60 Minor surgery BMI > 25 kg/m2 Swollen legs Varicose veins or History of unexplained or recurrent spontaneous Oral contraceptives or hormone replacement Sepsis (< 1 month) Serious lung disease, including pneumonia (< 1 month) Abnormal pulmonary function Acute myocardial infarction Congestive heart failure (< 1 month) History of inflammatory bowel disease Medical patient at bed rest Age 61-74 Arthroscopic surgery Major open surgery (> 45 min) Laparoscopic surgery (> 45 min) Malignancy Confined to bed (> 72 hours) Immobilizing plaster cast Central venous access Age >= 75 History of VTE Family history of VTE Factor V Leiden Prothrombin [id number] Lupus anticoagulant Anticardiolipin antibodies Elevated serum homocysteine Heparin-induced thrombocytopenia Other congenital or acquired thrombophilia Stroke (< 1 month) Elective arthroplasty Hip, pelvis, or leg fracture Acute spinal cord injury (< 1 month) Prophylaxis Regimen Total Risk Factor Score Risk Level Prophylaxis Regimen 0-1 Low Early ambulation 2 Moderate Order ONE of the following: *Sequential Compression Device (SCD) *Heparin 5000 units SQ BID 3-4 Higher Order ONE of the following medications: *Heparin 5000 units SQ TID *Enoxaparin/Lovenox 40 mg SQ daily (WT < 150 kg, CrCl > 30 mL/min) *Enoxaparin/Lovenox 30 mg SQ daily (WT < 150 kg, CrCl > 10-29 mL/min) *Enoxaparin/Lovenox 30 mg SQ BID (WT < 150 kg, CrCl > 30 mL/min) AND/OR *Sequential Compression Device (SCD) 5 or more Highest Order ONE of the following medications: *Heparin 5000 units SQ TID (Preferred with Epidurals) *Enoxaparin/Lovenox 40 mg SQ daily (WT < 150 kg, CrCl > 30 mL/min) *Enoxaparin/Lovenox 30 mg SQ daily (WT < 150 kg, CrCl > 10-29 mL/min) *Enoxaparin/Lovenox 30 mg SQ BID (WT < 150 kg, CrCl > 30 mL/min) AND *Sequential Compression Device (SCD) Assessment and Plan Problem List: (1) Seizure ICD Code: R56.9 - Unspecified convulsions Assessment and Plan 67-year-old female with history of HTN, HLD, CAD s/p stent, perforated gastric ulcer, prior tobacco use, alcohol use, presents with reported seizure activity and loss of consciousness. Suspected Seizure: eval for CVA, syncope. reported stiff, rigid, and seizure-like activity x2 at home, with postictal state reported by EMS. + urinary incontinence. -Head CT reviewed, shows tiny stable lacunar infarcts again noted in basal ganglia; otherwise stable and unremarkable -UA and CXR reviewed and unremarkable -CPK wnl, however lactic acid 3.1, afebrile, no leukocytosis -UDS negative, etoh level wnl -Neuro checks, seizure precautions, monitor on telemetry -Ativan IV prn seizure -Check brain MRI -Check lipid panel, HgbA1c -Continue patient's plavix -Consult neurology -Consult PT/OT -counseled on seizure precautions, no driving, climbing heights, swimming/ bathing alone, etc. Accelerated Hypertension: BP 210/91 in the ED. -Continue patient's labetalol and amlodipine -Clonidine prn if brain MRI negative for stroke -Monitor BP, adjust antihypertensives as needed CAD: chronic. S/p stent x1 in 2016 -troponin negative, EKG without any acute ischemic changes -no complaints of chest pain -continue patient's plavix, BB -monitor on telemetry Alcohol use: chronic, reports drinking 2 beers occasionally however patient not a good historian -counseled on cessation -thiamine/folate/MV -CIWA protocol DVT Prophylaxis: teds/SCDs This note was transcribed by ana Young. I, Dr. Madison Lara personally performed the history, physical exam, and medical decision making; and confirmed the accuracy of the information in the transcribed note. Authenticated by Dr. Madison Lara on 12/22/17 at 08:15.. Code Status Full Code Discussed Condition With Patient Ofe Young PA-C Dec 22, 2017 08:16 Madison Lara MD Dec 22, 2017 15:45
[2017-12-22] MEDS: DOCUSATE SODIUM 50 MG/SENNA 8.6 MG TAB PO SCH ×2 (09:00→20:58)
[2017-12-22] MEDS ORDERED: cloNIDine HCL 0.1 MG TAB PO PRN (11:15)
[2017-12-22] MEDS ORDERED: FLUMAZENIL 0.5 MG/5 ML VIAL IV PUSH PRN (11:30)
[2017-12-22] MEDS ORDERED: LORazepam 1 MG TAB PO PRN (11:30)
[2017-12-22] MEDS ORDERED: LORazepam 2 MG TAB PO PRN (12:00)
[2017-12-22] MEDS: LABETALOL HCL 200 MG TAB PO SCH ×2 (13:23→20:59)
[2017-12-22] MEDS: amLODIPine BESYLATE 5 MG TAB PO SCH (13:23)
[2017-12-22] MEDS: THIAMINE HCL 100 MG TAB PO SCH (13:23)
[2017-12-22] MEDS: PANTOPRAZOLE SOD 40 MG DELAYED RELEASE TAB PO SCH (13:24)
[2017-12-22] MEDS: CLOPIDOGREL 75 MG TAB PO SCH (13:24)
[2017-12-22] MEDS: FOLIC ACID 1 MG TAB PO SCH (13:25)
[2017-12-22] MEDS: MULTIVITAMINS/MINERALS THERAPEUTIC TAB PO SCH (13:28)
[2017-12-22] MEDS: SODIUM CHLOR 0.9% 1000 ML INJ 1,000 ML IV SCH ×2 (13:29→19:15)
[2017-12-22] MEDS: SODIUM CHLORIDE 0.9% FLUSH 10 ML FLUSH IV FLUSH SCH ×2 (13:29→20:57)
--- NOTE | 2017-12-22 13:31 | MB ---
cc: Ami Choi MD DATE: 12/22/2017 HISTORY OF PRESENT ILLNESS: She is a 67-year-old woman seen in neurological consultation. She came in yesterday for possible seizure. It appears that she went to bath and the noticed seizure activity. I am not 100% about the details. Mentioned, there is a question about a second seizure. The only thing the patient remembers is going to bed, feeling fine and woke up in the hospital. The patient admits that 3 years ago, she was in a [employer] bus to [place], when apparently she had a similar event during sleep. She was evaluated in a [facility] and she was not given any seizure medications. She has been fairly healthy overall. There is a history of some hypertension and hyperlipidemia and she takes Labetalol, pantoprazole, amlodipine and Plavix. PHYSICAL EXAMINATION: Her neurologic exam was normal at bedside. She was alert, pleasant, oriented, a bit sleepy. Reflexes were trace responses throughout and plantar responses were flexor. It appears that she had incontinence with the seizure last time. ASSESSMENT AND PLAN: Probable second seizure episode. Further evaluation to include MRI brain and EEG. We will start anticonvulsants, possibly Keppra. Thank you for asking us to assist in her care. Ami Choi MD OFC/KD , 01:13 PM , 01:30 PM
[2017-12-22] MEDS ORDERED: levETIRAcetam INJ 100 ML IV ONE (14:00)
--- NOTE | 2017-12-22 14:35 | RADRPT ---
EXAM DATE/TIME: 12/22/2017 13:50 [facility] COMPARISON: CT BRAIN W/O CONTRAST, December 22, 2017, 3:40. INDICATIONS : Seizures. MEDICAL HISTORY : Hypertension. SURGICAL HISTORY : Colon resection. ENCOUNTER: Initial ACUITY: 1 day PAIN SCORE: 0/10 LOCATION: cranial TECHNIQUE: Multiplanar, multisequence MRI of the brain was performed without contrast. FINDINGS: CEREBRUM: The ventricles are normal for age. No evidence of midline shift, mass lesion, hemorrhage or acute in farction. There are small old lacunar infarcts of the basal ganglia regions. No extraaxial fluid col lections are seen. The pituitary gland and suprasellar cistern are normal in configuration. WHITE MATTER: There are a few minimal areas of increased signal within the cerebral white matter. POSTERIOR FOSSA: The cerebellum and brainstem are intact. The 4th ventricle is midline. The cerebellopontine angle is unremarkable. The cerebellar tonsils are normal in position. DIFFUSION IMAGING: No focal areas of restricted diffusion are seen. No evidence of acute infarction. EXTRACRANIAL: The visualized portions of the orbits and paranasal sinuses are unremarkable. CONCLUSION: 1. No acute abnormality seen. 2. 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 3. Minimal suspected small vessel ischemic change in the white matter. Logan Reilly MD on December 22, 2017 at 14:31 Board Certified Radiologist. This report was verified electronically.
--- NOTE | 2017-12-22 18:17 | MG ---
cc: Ami Choi MD REQUESTED BY: Dr. Whitney INDICATION: An EEG was obtained on this 67-year-old patient with a history of a seizure last evening. FINDINGS: The patient is described as awake and asleep. The EEG shows asleep features initially with theta activity, beta rhythms and some intermixed delta activity. When the patient awakens, there are faster rhythms, but there continues to be some intermixed theta activity. The rhythms on the left are questionably slower. Photic stimulation showed some driving response. INTERPRETATION: Mildly abnormal electroencephalogram because of mild slowing with questionable focal slowing on the left hemisphere. No epileptiform features are present. Ami Choi MD OFC/SB , 06:04 PM , 06:16 PM
--- NOTE | 2017-12-22 19:48 | EKG ---
Date Performed: 12/22/2017 Time Performed: 02:40:11 PTAGE: 67 years EKG: Sinus rhythm WITH OCCASIONAL SUPRAVENTRICULAR PREMATURE COMPLEXES Since the previous tracing, no significant landin ge noted BORDERLINE ECG PREVIOUS TRACING : 02/29/2016 18.14 DOCTOR: China Bull Interpretating Date/Time 12/22/2017 19:46:34
[2017-12-23] VITALS: BP 115/59; PULSE 58; RESP 16; TEMP 98.2; O2SAT 97
[2017-12-23] MEDS: SODIUM CHLOR 0.9% 1000 ML INJ 1,000 ML IV SCH ×2 (02:16→12:16)
[2017-12-23 04:00] VITALS: BP 132/63; PULSE 57; RESP 17; TEMP 96.9; O2SAT 97
[2017-12-23 07:00] VITALS: PULSE 58
[2017-12-23] MEDS: SODIUM CHLORIDE 0.9% FLUSH 10 ML FLUSH IV FLUSH SCH (07:32)
[2017-12-23 08:00] VITALS: BP 138/69; PULSE 55; RESP 18; TEMP 96.9; O2SAT 98
[2017-12-23 08:16] LABS: AUTOMATED NEUTROPHIL # 2.6 TH/MM3 (1.8-7.7); BASOPHIL % 0.5 % (0.0-2.0); EOSINOPHIL # 0.1 TH/MM3 (0-0.4); EOSINOPHIL % 2.3 % (0.0-4.0); HEMATOCRIT 35.3 % (35.0-46.0); HEMOGLOBIN 11.7 GM/DL (11.6-15.3); LYMPH % 39.7 % (9.0-44.0); LYMPHOCYTE # 2.4 TH/MM3 (1.0-4.8); MEAN CORPUSCULAR HEMOGLOBIN 29.4 PG (27.0-34.0); MEAN CORPUSCULAR HGB CONC 33.1 % (32.0-36.0); MEAN PLATELET VOLUME 6.9 FL (7.0-11.0); MONO % 14.8 % (0.0-8.0); MONOCYTE # 0.9 TH/MM3 (0-0.9); NEUT % 42.7 % (16.0-70.0); PLATELET COUNT 388 TH/MM3 (150-450); RED BLOOD COUNT 3.96 MIL/MM3 (4.00-5.30); RED CELL DISTRIBUTION WIDTH 16.2 % (11.6-17.2)
[2017-12-23 08:43] LABS: ALBUMIN 3.3 GM/DL (3.4-5.0); ALKALINE PHOSPHATASE 67 U/L (45-117); ALT (GPT) 16 U/L (10-53); AST (GOT) 18 U/L (15-37); BICARBONATE 26.5 MEQ/L (21.0-32.0); BLOOD UREA NITROGEN 10 MG/DL (7-18); CALCIUM 8.5 MG/DL (8.5-10.1); CHLORIDE 107 MEQ/L (98-107); CHOLESTEROL 185 MG/DL (120-200); CHOLESTEROL/ HDL RATIO 2.25 RATIO; CREATININE 0.82 MG/DL (0.50-1.00); GLOMERULAR FILTRATION RATE 84 ML/MIN (>89); GLUCOSE,RANDOM 94 MG/DL (74-106); LDL CHOLESTEROL 88 MG/DL (0-99); SODIUM (NA) 142 MEQ/L (136-145); TOTAL BILIRUBIN ADULT 0.5 MG/DL (0.2-1.0); TOTAL PROTEIN 7.1 GM/DL (6.4-8.2); TRIGLYCERIDES 74 MG/DL (42-150)
[2017-12-23] MEDS: DOCUSATE SODIUM 50 MG/SENNA 8.6 MG TAB PO SCH (09:00)
[2017-12-23] MEDS ORDERED: levETIRAcetam 500 MG TAB PO SCH ×2 (09:00→21:00)
[2017-12-23] MEDS: LABETALOL HCL 200 MG TAB PO SCH (09:00)
[2017-12-23] MEDS: CLOPIDOGREL 75 MG TAB PO SCH (09:12)
[2017-12-23] MEDS: THIAMINE HCL 100 MG TAB PO SCH (09:12)
[2017-12-23] MEDS: FOLIC ACID 1 MG TAB PO SCH (09:12)
[2017-12-23] MEDS: MULTIVITAMINS/MINERALS THERAPEUTIC TAB PO SCH (09:12)
[2017-12-23] MEDS: amLODIPine BESYLATE 5 MG TAB PO SCH (09:12)
[2017-12-23] MEDS: PANTOPRAZOLE SOD 40 MG DELAYED RELEASE TAB PO SCH (09:12)
[2017-12-23 12:00] VITALS: BP 142/57; PULSE 51; RESP 16; TEMP 97.8; O2SAT 98
[2017-12-23] MEDS ORDERED: THIA100 PO (13:56)
[2017-12-23] MEDS ORDERED: LEVE500 PO (13:56)
[2017-12-23] MEDS ORDERED: THERM PO (13:56)
[2017-12-23] MEDS ORDERED: FOLI1TAB6 PO (13:56)
[2017-12-23] MEDS ORDERED: POTASSIUM CHLORIDE 20 MEQ CONTROLLED RELEASE TAB PO ONE (14:00)
[2017-12-23] MEDS ORDERED: levETIRAcetam 500 MG TAB PO ONE (14:00)
--- NOTE | 2017-12-23 14:03 | HHI.PR ---
Subjective Remarks 67-year-old female with history of HTN, HLD, CAD s/p stent, perforated gastric ulcer, prior tobacco use, alcohol use, presents with reported seizure activity and loss of consciousness. Patient reports she has felt in her usual state of health recently, was walking around her house last night, and the next thing she recalls is waking up in the hospital. ER reported patient's witnessed the patient become stiff, rigid, with seizure-like activity around 10 PM last night with subsequent confusion. She returned her baseline shortly after the episode, however around midnight she had a repeat similar episode with prolonged confusion. [facility] was called, and EMS reported the patient appeared postictal. Upon arrival to the ER, her mentation improved. The patient reports urinary incontinence. Denies any tongue biting. She was transported via [facility]. Denies any headache, lightheadedness, dizziness , chest pain, palpitations, shortness of breath, abdominal pain, nausea/vomiting , diarrhea, or urinary complaints. The patient reports a similar episode 3 years ago (however EMR reports episode in 2012), where she had an unremarkable work up. Neurology reported likely seizure related to alcohol use and hyponatremia. EEG was normal at that time. She does continue to drink alcohol, approximately 2 beers daily. She quit smoking 2 years ago. Denies any other medical complaints at this time. It should be noted the patient is not the best historian and information supplemented from EMR. 12-23 seen by NEUROLOGY HAD EEG WILL START ON KEPPRA 500MG BID DC TO HOME TODAY WANTS TO GO HOME DC TO HOME NO DRIVING FOR 6 MONTHS FOLLOW UP WITH NEUROLOGY Objective Vitals Vital Signs Date Time Temp Pulse Resp B/P (MAP) Pulse Ox O2 Delivery O2 Flow Rate FiO2 12/23/17 12:00 97.8 51 16 142/57 (85) 98 12/23/17 08:00 96.9 55 18 138/69 (92) 98 12/23/17 07:00 58 12/23/17 04:00 96.9 57 17 132/63 (86) 97 12/23/17 04:00 96.9 57 17 132/63 (86) 97 12/23/17 00:00 98.2 58 16 115/59 (77) 97 12/22/17 20:00 97.2 59 16 162/70 (100) 96 3/25/18 18:00 64 12/22/17 16:00 96.6 59 20 153/70 (97) 97 I/O 12/22/17 12/22/17 12/22/17 12/23/17 12/23/17 12/23/17 07:00 15:00 23:00 07:00 15:00 23:00 Intake Total 600 ml 100 ml 420 ml Balance 600 ml 100 ml 420 ml Intake Oral 600 ml 420 ml IV Total 100 ml # Voids 2 3 # Bowel Movements 1 Result Diagram: 12/23/17 0700 12/23/17 07 Other Results Laboratory Tests Test 12/22/17 02:57 12/22/17 05:15 12/22/17 12:51 12/22/17 12:57 White Blood Count 7.9 TH/MM3 Red Blood Count 3.94 MIL/MM3 Hemoglobin 11.7 GM/DL Hematocrit 34.8 % Mean Corpuscular Volume 88.3 FL Mean Corpuscular Hemoglobin 29.6 PG Mean Corpuscular Hemoglobin Concent 33.6 % Red Cell Distribution Width 15.6 % Platelet Count 389 TH/MM3 Mean Platelet Volume 7.1 FL Neutrophils (%) (Auto) 35.8 % Lymphocytes (%) (Auto) 48.5 % Monocytes (%) (Auto) 12.7 % Eosinophils (%) (Auto) 2.7 % Basophils (%) (Auto) 0.3 % Neutrophils # (Auto) 2.8 TH/MM3 Lymphocytes # (Auto) 3.8 TH/MM3 Monocytes # (Auto) 1.0 TH/MM3 Eosinophils # (Auto) 0.2 TH/MM3 Basophils # (Auto) 0.0 TH/MM3 CBC Comment DIFF FINAL Differential Comment Prothrombin Time 10.2 SEC Prothromb Time International Ratio 1.0 RATIO Activated Partial Thromboplast Time 22.3 SEC Blood Urea Nitrogen 11 MG/DL Creatinine 1.10 MG/DL Random Glucose 112 MG/DL Total Protein 7.7 GM/DL Albumin 3.5 GM/DL Calcium Level 8.6 MG/DL Alkaline Phosphatase 77 U/L Aspartate Amino Transf (AST/SGOT) 19 U/L Alanine Aminotransferase (ALT/SGPT) 19 U/L Total Bilirubin 0.3 MG/DL Sodium Level 136 MEQ/L Potassium Level 3.6 MEQ/L Chloride Level 98 MEQ/L Carbon Dioxide Level 23.5 MEQ/L Anion Gap 15 MEQ/L Estimat Glomerular Filtration Rate 60 ML/MIN Lactic Acid Level 3.1 mmol/L 0.6 mmol/L Ammonia 25 MCMOL/L Total Creatine Kinase 162 U/L 187 U/L Troponin I 0.03 NG/ML Thyroid Stimulating Hormone 3rd Gen 1.770 uIU/ML Ethyl Alcohol Level LESS THAN 3 MG/DL Urine Color LIGHT-YELLOW Urine Turbidity CLEAR Urine pH 6.0 Urine Specific [place] 1.008 Urine Protein NEG mg/dL Urine Glucose (UA) NEG mg/dL Urine Ketones NEG mg/dL Urine Occult Blood NEG Urine Nitrite NEG Urine Bilirubin NEG Urine Urobilinogen LESS THAN 2.0 MG/DL Urine Leukocyte Esterase NEG Urine RBC 1 /hpf Urine WBC 1 /hpf Urine Squamous Epithelial Cells <1 /hpf Urine Mucus FEW /lpf Microscopic Urinalysis Comment CATH-CULT NOT IND Urine Opiates Screen NEG Urine Barbiturates Screen NEG Urine Amphetamines Screen NEG Urine Benzodiazepines Screen NEG Urine Cocaine Screen NEG Urine Cannabinoids Screen NEG Creatine Kinase MB 2.9 NG/ML Test 12/22/17 14:57 12/23/17 07:00 Lactic Acid Level 0.8 mmol/L White Blood Count 6.0 TH/MM3 Red Blood Count 3.96 MIL/MM3 Hemoglobin 11.7 GM/DL Hematocrit 35.3 % Mean Corpuscular Volume 89.0 FL Mean Corpuscular Hemoglobin 29.4 PG Mean Corpuscular Hemoglobin Concent 33.1 % Red Cell Distribution Width 16.2 % Platelet Count 388 TH/MM3 Mean Platelet Volume 6.9 FL Neutrophils (%) (Auto) 42.7 % Lymphocytes (%) (Auto) 39.7 % Monocytes (%) (Auto) 14.8 % Eosinophils (%) (Auto) 2.3 % Basophils (%) (Auto) 0.5 % Neutrophils # (Auto) 2.6 TH/MM3 Lymphocytes # (Auto) 2.4 TH/MM3 Monocytes # (Auto) 0.9 TH/MM3 Eosinophils # (Auto) 0.1 TH/MM3 Basophils # (Auto) 0.0 TH/MM3 CBC Comment DIFF FINAL Differential Comment Blood Urea Nitrogen 10 MG/DL Creatinine 0.82 MG/DL Random Glucose 94 MG/DL Total Protein 7.1 GM/DL Albumin 3.3 GM/DL Calcium Level 8.5 MG/DL Alkaline Phosphatase 67 U/L Aspartate Amino Transf (AST/SGOT) 18 U/L Alanine Aminotransferase (ALT/SGPT) 16 U/L Total Bilirubin 0.5 MG/DL Sodium Level 142 MEQ/L Potassium Level 3.2 MEQ/L Chloride Level 107 MEQ/L Carbon Dioxide Level 26.5 MEQ/L Anion Gap 9 MEQ/L Estimat Glomerular Filtration Rate 84 ML/MIN Triglycerides Level 74 MG/DL Cholesterol Level 185 MG/DL LDL Cholesterol 88 MG/DL HDL Cholesterol 82.0 MG/DL Cholesterol/HDL Ratio 2.25 RATIO Imaging Last Impressions Head CT 12/22/17245 Signed Impressions: Service Date/Time: Friday, December 22, 2017 03:40 - CONCLUSION: Stable negative noncontrast head CT . Tiny stable lacunar infarcts are again noted in the basal ganglia. Willam Zurita MD Chest X-Ray 12/22/17245 Signed Impressions: Service Date/Time: Friday, December 22, 2017 02:49 - CONCLUSION: No acute disease. Willam Zurita MD Brain MRI 12/22/17 0000 Signed Impressions: Service Date/Time: Friday, December 22, 2017 13:50 - CONCLUSION: 1. No acute abnormality seen. 2. 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 3. Minimal suspected small vessel ischemic change in the white matter. Logan Reilly MD Objective Remarks GENERAL: Awake alert and oriented 3 talkative and cooperative SKIN: Warm and dry. HEAD: Atraumatic. Normocephalic. EYES: Pupils equal and round. No scleral icterus. No injection or drainage. Extraocular muscles intact ENT: No nasal bleeding or discharge. Mucous membranes pink and moist. Tongue is midline NECK: Trachea midline. No JVD. Supple CARDIOVASCULAR: Regular rate and rhythm. S1-S2 no S3-S4 RESPIRATORY: No accessory muscle use. Clear to auscultation. Breath sounds equal bilaterally. GASTROINTESTINAL: Abdomen soft, non-tender, nondistended. Hepatic and splenic margins not palpable. MUSCULOSKELETAL: Extremities without clubbing, cyanosis, or edema. No obvious deformities. NEUROLOGICAL: Awake and alert. No obvious cranial nerve deficits. Motor grossly within normal limits. Five out of 5 muscle strength in the arms and legs. Normal speech. PSYCHIATRIC: Appropriate mood and affect; insight and judgment normal. Medications and IVs Current Medications Sodium Chloride (NS Flush) 2 ml UNSCH PRN IV FLUSH FLUSH AFTER USING IV ACCESS ; Start 12/22/17 at 03:00; Stop 12/22/17 at 06:52; Status DC Labetalol HCl (Trandate Inj) 20 mg ONCE ONCE IV PUSH ; Start 12/22/17 at 06:00 ; Stop 12/22/17 at 06:06; Status DC Lorazepam (Ativan Inj) 1 mg Q5M PRN IV PUSH SEIZURE; Start 12/22/17 at 06:30 Sodium Chloride 1,000 ml @ 100 mls/hr Q10H IV Last administered on 12/23/17at 12:16; Start 12/22/17 at 06:16 Sodium Chloride (NS Flush) 2 ml UNSCH PRN IV FLUSH FLUSH AFTER USING IV ACCESS ; Start 12/22/17 at 06:30 Sodium Chloride (NS Flush) 2 ml BID IV FLUSH Last administered on 12/22/17at 13: 29; Start 12/22/17 at 09:00 Ondansetron HCl (Zofran Inj) 4 mg Q6H PRN IVP NAUSEA OR VOMITING; Start at 06:30 Acetaminophen (Tylenol) 650 mg Q6H PRN PO FEVER/PAIN SCALE 1 TO 2; Start at 06:30 Acetaminophen/ Hydrocodone Bitart ([place] 5-325 Mg) 1 tab Q4H PRN PO PAIN SCALE 3 TO 5; Start 12/22/17 at 06:30 Acetaminophen/ Hydrocodone Bitart ([place] 10-325 Mg) 1 tab Q4H PRN PO PAIN SCALE 6 TO 10; Start 12/22/17 at 06:30 Senna/Docusate Sodium (Connie-Colace) 1 tab BID PO ; Start 12/22/17 at 09:00 Magnesium Hydroxide (Milk Of Magnesia Liq) 30 ml Q12H PRN PO Mild constipation ; Start 12/22/17 at 06:30 Sennosides (Senokot) 17.2 mg Q12H PRN PO Moderate constipation; Start 12/22/17 at 06:30 Bisacodyl (Dulcolax Supp) 10 mg DAILY PRN RECTAL SEVERE CONSITIPATION; Start at 06:30 Lactulose (Lactulose Liq) 30 ml DAILY PRN PO SEVERE CONSITIPATION; Start at 06:30 Amlodipine Besylate (Norvasc) 5 mg DAILY PO Last administered on 12/23/17 09: 12; Start 12/22/17 at 09:00 Clopidogrel Bisulfate (Plavix) 75 mg DAILY PO Last administered on 12/23/17at 09 :12; Start 12/22/17 at 09:00 Labetalol HCl (Trandate) 200 mg BID PO Last administered on 12/22/17at 20:59; Start 12/22/17 at 09:00 Pantoprazole Sodium (Protonix) 40 mg DAILY PO Last administered on 12/23/17at 09 :12; Start 12/22/17 at 09:00 Clonidine (Catapres) 0.1 mg Q6H PRN PO SBP> OR = 180, DBP> OR = 100; Start at 11:15 Folic Acid (Folate) 1 mg DAILY PO Last administered on 12/23/17at 09:12; Start 12/22/17 at 12:00; Stop 12/27/17 at 11:59 Thiamine HCl (Vitamin B1) 100 mg DAILY PO Last administered on 12/23/17at 09:12 ; Start 12/22/17 at 12:00 Multivitamins/ Minerals Therapeutic (Theragran M Tab) 1 tab DAILY PO Last administered on 12/23/17at 09:12; Start 12/22/17 at 12:00; Stop 12/27/17 at 11:59 Flumazenil (Romazicon Inj) 0.2 mg Q1M PRN IV PUSH SEE LABEL COMMENTS; Start at 11:30 Lorazepam (Ativan) 1 mg Q4H PRN PO CIWA 8 - 10; Start 12/22/17 at 11:30 Lorazepam (Ativan Inj) 1 mg Q4H PRN IV PUSH CIWA 8 - 10; Start 12/22/17 at 11: 30 Lorazepam (Ativan) 2 mg Q2H PRN PO CIWA 11-14; Start 12/22/17 at 12:00 Lorazepam (Ativan Inj) 2 mg Q2H PRN IV PUSH CIWA 11-14; Start 12/22/17 at 11:30 Lorazepam (Ativan Inj) 2 mg Q1H PRN IV PUSH CIWA 15-20; Start 12/22/17 at 11:30 Lorazepam (Ativan Inj) 2 mg Q15M PRN IV PUSH CIWA > 20; Start 12/22/17 at 11:30 Levetriacetam 100 ml @ 400 mls/hr BOLUS ONCE IV Last administered on at 17:32; Start 12/22/17 at 14:00; Stop 12/22/17 at 14:14; Status DC Levetriacetam (Keppra) 500 mg Q12HR PO Last administered on 12/23/17at 09:12; Start 12/23/17 at 09:00 A/P Problem List: (1) Seizure ICD Code: R56.9 - Unspecified convulsions Assessment and Plan 67-year-old female with history of HTN, HLD, CAD s/p stent, perforated gastric ulcer, prior tobacco use, alcohol use, presents with reported seizure activity and loss of consciousness. Suspected Seizure: eval for CVA, syncope. reported stiff, rigid, and seizure-like activity x2 at home, with postictal state reported by EMS. + urinary incontinence. -Head CT reviewed, shows tiny stable lacunar infarcts again noted in basal ganglia; otherwise stable and unremarkable -UA and CXR reviewed and unremarkable -CPK wnl, however lactic acid 3.1, afebrile, no leukocytosis -UDS negative, etoh level wnl -Neuro checks, seizure precautions, monitor on telemetry -Ativan IV prn seizure -Check brain MRI -Check lipid panel, HgbA1c -Continue patient's plavix -Consult neurology -Consult PT/OT -counseled on seizure precautions, no driving, climbing heights, swimming/ bathing alone, etc. Accelerated Hypertension: BP 210/91 in the ED. -Continue patient's labetalol and amlodipine -Clonidine prn if brain MRI negative for stroke -Monitor BP, adjust antihypertensives as needed CAD: chronic. S/p stent x1 in 2016 -troponin negative, EKG without any acute ischemic changes -no complaints of chest pain -continue patient's plavix, BB -monitor on telemetry Alcohol use: chronic, reports drinking 2 beers occasionally however patient not a good historian -counseled on cessation -thiamine/folate/MV -CIWA protocol DVT Prophylaxis: teds/SCDs Discharge Planning DC TO HOME TODAY Bertram Sharma DO Dec 23, 2017 14:03
--- NOTE | 2017-12-23 14:04 | HHI.DS ---
Discharge Summary Admission Date Dec 22, 2017 at 06:19 Discharge Date: Dec 23, 2017 Admitting Diagnosis syncope/possible new onset seizure; HTN (1) Seizure ICD Code: R56.9 - Unspecified convulsions Diagnosis: Principal (2) Essential hypertension ICD Code: I10 - Essential hypertension Diagnosis: Secondary Status: Acute (3) Tobacco use disorder ICD Code: Z72.0 - Tobacco use disorder Diagnosis: Secondary Status: Acute (4) Altered mental status, unspecified ICD Code: R41.82 - Altered mental status, unspecified Diagnosis: Principal Status: Acute (5) Syncope ICD Code: R55 - Syncope and collapse Diagnosis: Secondary Status: Acute Procedures EEG Brief History - From Admission 67-year-old female with history of HTN, HLD, CAD s/p stent, perforated gastric ulcer, prior tobacco use, alcohol use, presents with reported seizure activity and loss of consciousness. Patient reports she has felt in her usual state of health recently, was walking around her house last night, and the next thing she recalls is waking up in the hospital. ER reported patient's witnessed the patient become stiff, rigid, with seizure-like activity around 10 PM last night with subsequent confusion. She returned her baseline shortly after the episode, however around midnight she had a repeat similar episode with prolonged confusion. [facility] was called, and EMS reported the patient appeared postictal. Upon arrival to the ER, her mentation improved. The patient reports urinary incontinence. Denies any tongue biting. She was transported via [facility]. Denies any headache, lightheadedness, dizziness , chest pain, palpitations, shortness of breath, abdominal pain, nausea/vomiting , diarrhea, or urinary complaints. The patient reports a similar episode 3 years ago (however EMR reports episode in 2012), where she had an unremarkable work up. Neurology reported likely seizure related to alcohol use and hyponatremia. EEG was normal at that time. She does continue to drink alcohol, approximately 2 beers daily. She quit smoking 2 years ago. Denies any other medical complaints at this time. It should be noted the patient is not the best historian and information supplemented from EMR. CBC/BMP: 12/23/17 0700 12/23/17 0700 Significant Findings Laboratory Tests Test 12/22/17 02:57 12/22/17 05:15 12/22/17 12:51 12/22/17 12:57 Red Blood Count 3.94 MIL/MM3 (4.00-5.30) Hematocrit 34.8 % (35.0-46.0) Lymphocytes (%) (Auto) 48.5 % (9.0-44.0) Monocytes (%) (Auto) 12.7 % (0.0-8.0) Monocytes # (Auto) 1.0 TH/MM3 (0-0.9) Activated Partial Thromboplast Time 22.3 SEC (24.3-30.1) Creatinine 1.10 MG/DL (0.50-1.00) Random Glucose 112 MG/DL (74-106) Estimat Glomerular Filtration Rate 60 ML/MIN (>89) Lactic Acid Level 3.1 mmol/L (0.4-2.0) Urine Mucus FEW /lpf (OCC) Test 12/22/17 14:57 12/23/17 07:00 Red Blood Count 3.96 MIL/MM3 (4.00-5.30) Mean Platelet Volume 6.9 FL (7.0-11.0) Monocytes (%) (Auto) 14.8 % (0.0-8.0) Albumin 3.3 GM/DL (3.4-5.0) Potassium Level 3.2 MEQ/L (3.5-5.1) Estimat Glomerular Filtration Rate 84 ML/MIN (>89) HDL Cholesterol 82.0 MG/DL (40.0-60.0) Imaging Last Impressions Head CT 12/22/17245 Signed Impressions: Service Date/Time: Friday, December 22, 2017 03:40 - CONCLUSION: Stable negative noncontrast head CT . Tiny stable lacunar infarcts are again noted in the basal ganglia. Willam Zurita MD Chest X-Ray 12/22/17245 Signed Impressions: Service Date/Time: Friday, December 22, 2017 02:49 - CONCLUSION: No acute disease. Willam Zurita MD Brain MRI 12/22/17 0000 Signed Impressions: Service Date/Time: Friday, December 22, 2017 13:50 - CONCLUSION: 1. No acute abnormality seen. 2. 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 3. Minimal suspected small vessel ischemic change in the white matter. Logan Reilly MD PE at Discharge GENERAL: Awake alert and oriented 3 talkative and cooperative SKIN: Warm and dry. HEAD: Atraumatic. Normocephalic. EYES: Pupils equal and round. No scleral icterus. No injection or drainage. Extraocular muscles intact ENT: No nasal bleeding or discharge. Mucous membranes pink and moist. Tongue is midline NECK: Trachea midline. No JVD. Supple CARDIOVASCULAR: Regular rate and rhythm. S1-S2 no S3-S4 RESPIRATORY: No accessory muscle use. Clear to auscultation. Breath sounds equal bilaterally. GASTROINTESTINAL: Abdomen soft, non-tender, nondistended. Hepatic and splenic margins not palpable. MUSCULOSKELETAL: Extremities without clubbing, cyanosis, or edema. No obvious deformities. NEUROLOGICAL: Awake and alert. No obvious cranial nerve deficits. Motor grossly within normal limits. Five out of 5 muscle strength in the arms and legs. Normal speech. PSYCHIATRIC: Appropriate mood and affect; insight and judgment normal. Hospital Course 67-year-old female with history of HTN, HLD, CAD s/p stent, perforated gastric ulcer, prior tobacco use, alcohol use, presents with reported seizure activity and loss of consciousness. Patient reports she has felt in her usual state of health recently, was walking around her house last night, and the next thing she recalls is waking up in the hospital. ER reported patient's witnessed the patient become stiff, rigid, with seizure-like activity around 10 PM last night with subsequent confusion. She returned her baseline shortly after the episode, however around midnight she had a repeat similar episode with prolonged confusion. [facility] was called, and EMS reported the patient appeared postictal. Upon arrival to the ER, her mentation improved. The patient reports urinary incontinence. Denies any tongue biting. She was transported via [facility]. Denies any headache, lightheadedness, dizziness , chest pain, palpitations, shortness of breath, abdominal pain, nausea/vomiting , diarrhea, or urinary complaints. The patient reports a similar episode 3 years ago (however EMR reports episode in 2013), where she had an unremarkable work up. Neurology reported likely seizure related to alcohol use and hyponatremia. EEG was normal at that time. She does continue to drink alcohol, approximately 2 beers daily. She quit smoking 2 years ago. Denies any other medical complaints at this time. It should be noted the patient is not the best historian and information supplemented from EMR. 12-23 seen by NEUROLOGY HAD EEG WILL START ON KEPPRA 500MG BID DC TO HOME TODAY WANTS TO GO HOME DC TO HOME NO DRIVING FOR 6 MONTHS FOLLOW UP WITH NEUROLOGY HAD EEG AND MRI BOTH STABLE Pt Condition on Discharge: Good Discharge Disposition: Discharge Home Discharge Time: <= 30 minutes Discharge Instructions DIET: Follow Instructions for: Heart Healthy Diet Speech Therapy-Diet Recommends: Regular Activities you can perform: See Additionl Instruction Other Activity Instructions: NO DRIVING A DEPUTY COMMISSIONER FOR 6 MONTHS Follow up Referrals: Neurology - 1 Week with Ami Choi MD PCP Follow-up - 2-3 Days with Timothy Chino MD New Medications: Folic Acid (Folic Acid) 1 Mg Tablet 1 MG PO DAILY for Nutritional Supplement, #30 TAB Levetiracetam (Keppra) 500 Mg Tab 500 MG PO Q12HR for Seizure Control, #60 TAB Multiple Vitamins W/ Minerals (Thera M Plus) 1 Tab 1 TAB PO DAILY for Nutritional Supplement, #30 TAB Thiamine HCl (Gnp Vitamin B-1) 100 Mg Tab 100 MG PO DAILY for Nutritional Supplement, #30 TAB Continued Medications: Amlodipine (Amlodipine) 5 Mg Tab 5 MG PO DAILY for Blood Pressure Management, #30 TAB 0 Refills Clopidogrel (Clopidogrel) 75 Mg Tab 75 MG PO DAILY for Blood Clot Prevention, #30 TAB 0 Refills Labetalol (Labetalol) 200 Mg Tab 200 MG PO BID for Blood Pressure Management, TAB 0 Refills Pantoprazole (Pantoprazole) 40 Mg Tab 40 MG PO DAILY for Reflux, #30 TAB 0 Refills Bertram Sharma DO Dec 23, 2017 14:04
--- NOTE | 2017-12-23 15:57 | HHI.PR ---
Review/Management Daily Summary 12/23 doing well ready to go home ok to d/c landon quiroz i asked her to come and see me for f/u in 1 month Subjective Subjective Comments No acute events reported No headache No chest pain No dyspnea Active Medications Current Medications Medications (Trade) Dose Ordered Sig/Cassy Route Start Time Stop Time Status Last Admin (Ativan Inj) 1 mg Q5M PRN IV PUSH 12/22/17 06:30 Sodium Chloride 1,000 ml @ 100 mls/hr Q10H IV 12/22/17 06:16 12/23/17 12:16 (NS Flush) 2 ml UNSCH PRN IV FLUSH 12/22/17 06:30 (NS Flush) 2 ml BID IV FLUSH 12/22/17 09:00 12/22/17 13:29 (Zofran Inj) 4 mg Q6H PRN IVP 12/22/17 06:30 (Tylenol) 650 mg Q6H PRN PO 12/22/17 06:30 ([place] 5-325 Mg) 1 tab Q4H PRN PO 12/22/17 06:30 ([place] 10-325 Mg) 1 tab Q4H PRN PO 12/22/17 06:30 (Connie-Colace) 1 tab BID PO 12/22/17 09:00 (Milk Of Magnesia Liq) 30 ml Q12H PRN PO 12/22/17 06:30 (Senokot) 17.2 mg Q12H PRN PO 12/22/17 06:30 (Dulcolax Supp) 10 mg DAILY PRN RECTAL 12/22/17 06:30 (Lactulose Liq) 30 ml DAILY PRN PO 12/22/17 06:30 (Norvasc) 5 mg DAILY PO 12/22/17 09:00 12/23/17 09:12 (Plavix) 75 mg DAILY PO 12/22/17 09:00 12/23/17 09:12 (Trandate) 200 mg BID PO 12/22/17 09:00 12/22/17 20:59 (Protonix) 40 mg DAILY PO 12/22/17 09:00 12/23/17 09:12 (Catapres) 0.1 mg Q6H PRN PO 12/22/17 11:15 (Folate) 1 mg DAILY PO 12/22/17 12:00 3/30/18 11:59 12/23/17 09:12 (Vitamin B1) 100 mg DAILY PO 12/22/17 12:00 12/23/17 09:12 (Theragran M Tab) 1 tab DAILY PO 12/22/17 12:00 12/27/17 11:59 12/23/17 09:12 (Romazicon Inj) 0.2 mg Q1M PRN IV PUSH 12/22/17 11:30 (Ativan) 1 mg Q4H PRN PO 12/22/17 11:30 (Ativan Inj) 1 mg Q4H PRN IV PUSH 12/22/17 11:30 (Ativan) 2 mg Q2H PRN PO 12/22/17 12:00 (Ativan Inj) 2 mg Q2H PRN IV PUSH 12/22/17 11:30 (Ativan Inj) 2 mg Q1H PRN IV PUSH 12/22/17 11:30 (Ativan Inj) 2 mg Q15M PRN IV PUSH 12/22/17 11:30 (Keppra) 500 mg Q12HR PO 12/23/17 09:00 12/23/17 09:12 Allergies Allergies Coded Allergies ibuprofen (Unverified Allergy, Severe, 05/14/17) lisinopril (Unverified Allergy, Severe, LIP SWELLS, 05/14/17) Exam I&O / VS Vital Signs Date Time Temp Pulse Resp B/P (MAP) Pulse Ox O2 Delivery O2 Flow Rate FiO2 12/23/17 12:00 97.8 51 16 142/57 (85) 98 12/23/17 08:00 96.9 55 18 138/69 (92) 98 12/23/17 07:00 58 12/23/17 04:00 96.9 57 17 132/63 (86) 97 12/23/17 04:00 96.9 57 17 132/63 (86) 97 12/23/17 00:00 98.2 58 16 115/59 (77) 97 12/22/17 20:00 97.2 59 16 162/70 (100) 96 12/22/17 18:00 64 12/22/17 16:00 96.6 59 20 153/70 (97) 97 Objective Radiology Results Last [address] 3/6 Signed Impressions: Service Date/Time: Friday, December 22, 2017 03:40 - CONCLUSION: Stable negative noncontrast head CT . Tiny stable lacunar infarcts are again noted in the basal ganglia. Willam Zurita MD Chest X-Ray 12/22/176 Signed Impressions: Service Date/Time: Friday, December 22, 2017 02:49 - CONCLUSION: No acute disease. Willam Zurita MD Brain MRI 12/22/17 0000 Signed Impressions: Service Date/Time: Friday, December 22, 2017 13:50 - CONCLUSION: 1. No acute abnormality seen. 2. 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 3. Minimal suspected small vessel ischemic change in the white matter. Logan Reilly MD Micro and Labs Laboratory Tests Test 12/23/17 07:00 White Blood Count 6.0 Red Blood Count 3.96 Hemoglobin 11.7 Hematocrit 35.3 Mean Corpuscular Volume 89.0 Mean Corpuscular Hemoglobin 29.4 Mean Corpuscular Hemoglobin Concent 33.1 Red Cell Distribution Width 16.2 Platelet Count 388 Mean Platelet Volume 6.9 Neutrophils (%) (Auto) 42.7 Lymphocytes (%) (Auto) 39.7 Monocytes (%) (Auto) 14.8 Eosinophils (%) (Auto) 2.3 Basophils (%) (Auto) 0.5 Neutrophils # (Auto) 2.6 Lymphocytes # (Auto) 2.4 Monocytes # (Auto) 0.9 Eosinophils # (Auto) 0.1 Basophils # (Auto) 0.0 CBC Comment DIFF FINAL Differential Comment Blood Urea Nitrogen 10 Creatinine 0.82 Random Glucose 94 Total Protein 7.1 Albumin 3.3 Calcium Level 8.5 Alkaline Phosphatase 67 Aspartate Amino Transf (AST/SGOT) 18 Alanine Aminotransferase (ALT/SGPT) 16 Total Bilirubin 0.5 Sodium Level 142 Potassium Level 3.2 Chloride Level 107 Carbon Dioxide Level 26.5 Anion Gap 9 Estimat Glomerular Filtration Rate 84 Triglycerides Level 74 Cholesterol Level 185 LDL Cholesterol 88 HDL Cholesterol 82.0 Cholesterol/HDL Ratio 2.25 Ami Choi MD Dec 23, 2017 15:57
[2017-12-23 17:00] VITALS: BP 98/53; PULSE 62; RESP 19; TEMP 96.5; O2SAT 98
[2017-12-25 18:45] LABS: HEMOGLOBIN A1C 5.8 % (4.3-6.0)
== END 2017-12-23 15:25 | disposition home or self-care (01) ==
LOC: NEPC 02:24 → NEDA 06:19 → UNDOADMOB 06:19 → NEDA 07:25 → HOCA 07:25 → UNDODISOB 12-23 15:25
PROVIDERS: ADMIT Hospitalist; ATTEND Hospitalist
DX: R56.9 Unspecified convulsions (principal); R55 Syncope and collapse; R41.82 Altered mental status, unspecified; E87.1 Hypo-osmolality and hyponatremia; I25.10 Atherosclerotic heart disease of native coronary artery without angina pectoris; I10 Essential (primary) hypertension; E78.00 Pure hypercholesterolemia, unspecified; I25.2 Old myocardial infarction; R94.01 Abnormal electroencephalogram [EEG]; R32 Unspecified urinary incontinence; Z79.899 Other long term (current) drug therapy; Z95.5 Presence of coronary angioplasty implant and graft; Z87.891 Personal history of nicotine dependence
CPT/HCPCS: 70450; 70551; 71045; 80053; 80061; 80307; 81001; 82140; 82550; 82552; 83036; 83605; 84443; 84484; 85025; 85610; 85730; 93005; 95819; 96361; 96365; 96366; 97110; 97116; 97162; 97165; 99285; G0378; J1953; J7030